=== PATIENT | female | born 1995 | race Caucasian/White ===

== ENCOUNTER 2023-10-20 17:01 | Emergency (ER) | payer OTHER ==
[2023-10-20 17:15] VITALS: BP 120/88; PULSE 85; RESP 19; TEMP 98.9; BMI 26.9
[2023-10-20 18:27] LABS: BASO % 0.2 % (0-2.0); HEMATOCRIT 36.4 % (32.4-45.2); HEMOGLOBIN 12.6 GM/dL (10.7-15.3); LYMPH % 29.3 % (8-40); MCH 28.8 pg (25.7-33.7); MCHC 34.5 g/dl (32.0-36.0); MEAN CELL VOLUME 83.3 fl (80-96); MEAN PLT VOLUME 7.8 fl (7.5-11.1); NEUT % 63.5 % (42.8-82.8); PLATELET COUNT 197 10^3/uL (134-434); RBC 4.37 M/mm3 (3.60-5.2); RDW 14.1 % (11.6-15.6); WHITE BLOOD COUNT 8.3 K/mm3 (4.0-10.0)
[2023-10-20 18:32] LABS: EPI CELLS 23 /uL (0-25.1); HYALINE CASTS 3 /uL (0-3.1); PH,URINE 6.5 (5.0-8.0); URINE APPEARANCE TURBID; URINE BACTERIA 16 /uL (0-1359); URINE BILIRUBIN 1+ (NEGATIVE); URINE COLOR RED; URINE GLUCOSE (UA) NEGATIVE (NEGATIVE); URINE KETONE NEGATIVE (NEGATIVE); URINE LEUK ESTERASE 1+ (NEGATIVE); URINE NITRITE NEGATIVE (NEGATIVE); URINE PROTEIN 2+ (NEGATIVE); URINE RBC 36582 /uL (0-23.9); URINE UROBILINOGEN 0.2 mg/dL (0.2-1.0); URINE WBC 51 /uL (0-25.8)
[2023-10-20 18:54] LABS: POTASSIUM 3.9 mmol/L (3.5-5.1)
[2023-10-20 18:55] LABS: ALBUMIN 3.5 g/dl (3.4-5.0); BLOOD UREA NITROGEN 9.2 mg/dL (7-18); CALCIUM 9.2 mg/dL (8.5-10.1)
[2023-10-20 18:59] LABS: CREATININE 0.5 mg/dL (0.55-1.3)
[2023-10-20 19:01] LABS: BILIRUBIN,TOTAL 0.3 mg/dL (0.2-1); TOT PROT 7.1 g/dl (6.4-8.2)
== END 2023-10-20 20:45 | disposition home or self-care (01) ==
LOC: JER 17:01
DX: O20.9 Hemorrhage in early pregnancy, unspecified (principal); Z3A.10 10 weeks gestation of pregnancy
CPT/HCPCS: 36415; 76817-TC; 80053; 81003; 84702; 85025; 86850; 86900; 86901; 87086; 99284-25